=== PATIENT | female | born 2000 | race Caucasian/White ===

== ENCOUNTER 2022-10-13 12:42 | Emergency (ER) | payer MEDICAID ==
[~2022-10-13] VITALS: Ht 157.5 cm; Wt 81.8 kg
[2022-10-13] MEDS ORDERED: HYDROcodone/acetaminophen 5mg/325mg tablet PO ONE (14:50)
[2022-10-13] MEDS ORDERED: NAPR-56 PO (14:52)
[2022-10-13] MEDS ORDERED: AMOX-117 PO (14:52)
[2022-10-13] MEDS ORDERED: amox tr/potassium clavulanate 875/125mg TAB PO ONE (15:25)
--- NOTE | 2022-10-13 15:45 | NUR ---
pt mother stated pt had amoxicillin and augmentin in past and not allergic to it.
[2022-10-13] MEDS ORDERED: ondansetron 4mg rapidly disintigrating tab PO ONE (15:55)
[2022-10-13 16:10] VITALS: BP 103/60
== END 2022-10-13 16:17 | disposition home or self-care (01) ==
LOC: ER 12:43
DX: H72.92 Unspecified perforation of tympanic membrane, left ear (principal); H66.92 Otitis media, unspecified, left ear; Z88.5 Allergy status to narcotic agent; Z88.1 Allergy status to other antibiotic agents; Z88.2 Allergy status to sulfonamides; Z79.899 Other long term (current) drug therapy
CPT/HCPCS: 99284